=== PATIENT | female | born 1935 | race African-American/Black ===

== ENCOUNTER 2022-06-30 08:17 | Inpatient (IN) | payer OTHER ==
[~2022-06-30] VITALS: Ht 165.1 cm; Wt 65.8 kg
[2022-06-30 08:56] LABS: BASOPHILS % 0.6 % (0.0-2.0); EOSINOPHILS % 0.2 % (0.0-5.0); HEMOGLOBIN. 12.9 g/dL (12.0-16.0); LYMPHOCYTES % 12.1 % (20.0-50.0); MEAN CORPUSCULAR HEMOGLOBIN 23.3 pg (28.0-32.0); MEAN CORPUSCULAR VOLUME 73.9 fL (81.0-99.0); MEAN PLATELET VOLUME 9.4 fl (7.4-10.4); MONOCYTES % 7.5 % (2.0-8.0); NEUTROPHILS % 79.6 % (40.0-76.0); PLATELET 225 x1000/uL (130-400); RED BLOOD CELL COUNT 5.54 mill/uL (4.2-5.4); RED CELL DISTRIBUTION WIDTH 15.6 % (11.6-14.6)
[2022-06-30 09:01] LABS: CHLORIDE 107 mEq/L (98-107)
[2022-06-30] MEDS ORDERED: ZOLPIDEM TARTRATE 5MG TABLET PO PRN (18:45)
[2022-06-30] MEDS ORDERED: CLONIDINE 0.1MG TABLET PO PRN (18:45)
[2022-06-30] MEDS ORDERED: ONDANSETRON HCL 4MG/2ML INJ IV PRN (18:45)
[2022-06-30] MEDS ORDERED: DIPHENHYDRAMINE 50MG/ML VIAL IV PRN (18:45)
[2022-06-30] MEDS ORDERED: POTASSIUM CHLORIDE 20MEQ TABLET SR PO NR (18:45)
[2022-06-30] MEDS ORDERED: MAGNESIUM/ALUMINUM HYDROXIDE/SIMETHICONE 30ML UDC PO PRN (18:45)
[2022-06-30] MEDS ORDERED: IBUPROFEN 400MG TABLET PO PRN (18:45)
[2022-06-30] MEDS ORDERED: ACETAMINOPHEN 325MG TABLET PO PRN ×2 (18:45)
[2022-06-30] MEDS ORDERED: ENOXAPARIN 40MG/0.4ML SYR SUBCUT SCH (19:00)
[2022-06-30 20:00] VITALS: BP 167/96
[2022-06-30] MEDS ORDERED: FAMOTIDINE 20MG TABLET PO SCH (21:00)
[2022-06-30] MEDS: AMLODIPINE 5MG TABLET PO SCH (21:45)
[2022-06-30] MEDS: SODIUM CHLORIDE 0.9% INJ 3ML FLUSH IVF SCH (21:46)
[2022-07-01] VITALS: BP 148/80
[2022-07-01 04:00] VITALS: BP 147/87
[2022-07-01] MEDS: SODIUM CHLORIDE 0.9% INJ 3ML FLUSH IVF SCH (06:14)
[2022-07-01 06:20] LABS: CHLORIDE 107 mEq/L (98-107)
[2022-07-01 06:21] LABS: BASOPHILS % 0.6 % (0.0-2.0); EOSINOPHILS % 1.9 % (0.0-5.0); HEMATOCRIT. 37.2 % (36.0-48.0); HEMOGLOBIN. 11.9 g/dL (12.0-16.0); LYMPHOCYTES % 28.6 % (20.0-50.0); MEAN CORPUSCULAR HEMOGLOBIN 23.6 pg (28.0-32.0); MEAN CORPUSCULAR VOLUME 73.5 fL (81.0-99.0); MEAN PLATELET VOLUME 10.2 fl (7.4-10.4); MONOCYTES % 12.4 % (2.0-8.0); NEUTROPHILS % 56.5 % (40.0-76.0); PLATELET 185 x1000/uL (130-400); RED BLOOD CELL COUNT 5.06 mill/uL (4.2-5.4); RED CELL DISTRIBUTION WIDTH 15.2 % (11.6-14.6)
[2022-07-01 06:29] LABS: PHOSPHORUS 2.3 mg/dL (2.5-4.9)
[2022-07-01] MEDS ORDERED: POTASSIUM CHLORIDE 20MEQ TABLET SR PO NR (08:45)
[2022-07-01] MEDS: AMLODIPINE 5MG TABLET PO SCH (08:48)
[2022-07-01 12:00] VITALS: BP 150/80
[2022-07-01 15:29] VITALS: BP 150/88
[2022-07-01 16:00] VITALS: BP 136/89
[2022-07-02 16:00] VITALS: BP 103/58
== END 2022-07-01 16:55 | disposition home or self-care (01) | DRG 914 ==
LOC: ER 08:17 → 7EST 12:19 → EDBEDREQTM 12:23 → EDBEDREQ 12:23
PROVIDERS: ADMIT Internal Medicine; ATTEND Internal Medicine
DX: S09.90XA Unspecified injury of head, initial encounter (principal); I10 Essential (primary) hypertension; E87.6 Hypokalemia; I48.91 Unspecified atrial fibrillation; Z96.643 Presence of artificial hip joint, bilateral; Z20.822 Contact with and (suspected) exposure to COVID-19; M10.9 Gout, unspecified; W06.XXXA Fall from bed, initial encounter; Y93.84 Activity, sleeping; Y92.003 Bedroom of unspecified non-institutional (private) residence as the place of occurrence of the external cause; Y99.8 Other external cause status
CPT/HCPCS: 36415; 71045; 72170; 80048; 80053; 83735; 83880; 84100; 84484; 85025; 87426; 93005; 97162; 99285; C9803; J1650